=== PATIENT | male | born 1995 | race Caucasian/White ===

== ENCOUNTER 2020-08-03 19:52 | Emergency (ER) | payer BC ==
[2020-08-03] MEDS ORDERED: Boostrix 0.5 ML (Tdap) VIAL ONE (20:05)
[2020-08-03] MEDS ORDERED: Lidocaine 1% w/Epinephrine 1:100K 20 ML VIAL ONE (20:18)
[2020-08-03] MEDS ORDERED: Bacitracin 1 PK ONE (21:11)
== END 2020-08-03 21:12 | disposition home or self-care (01) ==
LOC: ERS 19:52 → EDBD 19:52 → ERS 21:12
DX: S61.412A Laceration without foreign body of left hand, initial encounter (principal); S61.512A Laceration without foreign body of left wrist, initial encounter; W22.8XXA Striking against or struck by other objects, initial encounter
CPT/HCPCS: 12001; 90471; 90715